=== PATIENT | male | born 1995 | race Two or more races ===

== ENCOUNTER 2019-03-19 00:52 | Emergency (ER) | payer SELFPAY ==
[2019-03-19 01:12] VITALS: BP 144/85
--- NOTE | 2019-03-19 08:47 | EKG REPORT ---
SEVERITY:- ABNORMAL ECG - SINUS RHYTHM INCOMPLETE LEFT BUNDLE BRANCH BLOCK : Confirmed by: Shyla Katz 19-Mar-2019 08:46:46
== END 2019-03-19 02:30 | disposition left against medical advice (07) ==
LOC: ER 00:52
DX: Z53.21 Procedure and treatment not carried out due to patient leaving prior to being seen by health care provider (principal)
CPT/HCPCS: 93005; 93010

== ENCOUNTER 2019-03-19 23:36 | Emergency (ER) | payer SELFPAY ==
[2019-03-20 01:40] LABS: A TYPE INFLUENZA AG NEGATIVE (NEGATIVE); B INFLUENZA AG NEGATIVE (NEGATIVE)
[2019-03-20] MEDS ORDERED: ALBUTEROL SULFATE HFA (90 MCG/PUFF) 8 GM MDI (1 MDI/ER DISP) IH ONE (05:35)
--- NOTE | 2019-03-20 05:57 | ER Document Report ---
ED General - General Chief Complaint: Cough Stated Complaint: COUGH,SORE THROAT Time Seen by Provider: 03/20/19 05:19 Notes: 23-year-old male presents emergency department complaining of a cough for the past month and a half that is now associated with chest pain only when he coughs and some posttussive emesis. It is been worsening for the past several days. Patient also states that he has had an intermittent sore throat that also feels dry starting on Saturday. Denies any fever, denies any shortness of breath, denies any wheezing, denies any difficulty swallowing. Also denies any rhinorrhea. TRAVEL OUTSIDE OF THE [place] IN LAST 30 DAYS: No - Related Data Allergies/Adverse Reactions: No Known Allergies Allergy (Verified 04/08/15 23:07) Past Medical History - General Information source: Patient - Social History Smoking Status: Current Every Day Smoker Frequency of alcohol use: Social Drug Abuse: Cocaine, Marijuana Family History: Reviewed & Not Pertinent Patient has suicidal ideation: No Patient has homicidal ideation: No - Immunizations Hx Diphtheria, Pertussis, Tetanus Vaccination: No Review of Systems - Review of Systems Constitutional: No symptoms reported EENT: See HPI Cardiovascular: See HPI Respiratory: See HPI Gastrointestinal: See HPI -: Yes All other systems reviewed and negative Physical Exam - Vital signs Vitals: Temp Pulse Resp BP Pulse Ox 99.1 F 110 H 18 151/94 H 97 03/19/19 23:41 03/19/19 23:41 03/19/19 23:41 03/19/19 23:41 03/19/19 23:41 Interpretation: Tachycardic - Notes Notes: GENERAL: Alert, interacts well. No acute distress. HEAD: Normocephalic, atraumatic EYES: Pupils equal, round and reactive to light, extraocular movements intact. ENT: Oral mucosa moist, tongue midline. Slight clear rhinorrhea, some postnasal drip, tympanic membranes intact without injection or erythema. NECK: Full range of motion, supple, trachea midline. LUNGS: Diffuse very mild expiratory wheezing, no rales or rhonchi, no resp iratory distress. HEART: Regular rate and rhythm, no murmurs, gallops, rubs. ABDOMEN: Soft, nontender, nondistended, bowel sounds present in all 4 quadrants. EXTREMITIES: Moves all 4 extremities spontaneously, no edema, radial and dorsalis pedis pulses 2/4 bilaterally. No cyanosis. NEUROLOGICAL: Alert and oriented x3, normal speech. PSYCH: Normal mood, normal affect. SKIN: Warm, Dry, normal turgor, no rashes or lesions noted. Course - Re-evaluation Re-evalutation: 03/20/19 06:45 Flu swabs negative. Given the month and have long history of cough that has not been improving I did order a chest x-ray. Chest X-Ray 03/20/19 05:35 IMPRESSION: Moderate bihilar opacity may indicate lymphadenopathy or pulmonary arterial enlargement. Recommend contrast CT of the chest. Contrasted CT scan of the chest is being ordered. 03/20/19 08:26 Chest X-Ray 03/20/19 05:35 IMPRESSION: Moderate bihilar opacity may indicate lymphadenopathy or pulmonary arterial enlargement. Recommend contrast CT of the chest. 03/20/19 08:26 Chest X-Ray 03/20/19 05:35 IMPRESSION: Moderate bihilar opacity may indicate lymphadenopathy or pulmonary arterial enlargement. Recommend contrast CT of the chest. CAT scan shows significant adenopathy throughout the mediastinum and hilum and paratracheal region. There is a broad differential for this including infectious, neoplastic and inflammatory. Discussed with Dr. Baron who states that the patient will need an excisional biopsy. Discussed with Dr. Jackson the surgeon on-call who states that all the surgeons at [facility] can perform this a biopsy. States that they would be happy to see the patient as an outpatient for this biopsy. Recommends referring the patient to their office. Patient is agreeable to this plan as well. For his acute wheezing and cough today patient will be prescribed an albuterol inhaler 2 puffs every 4 hours as needed for wheezing and discharged home. Patient is going to follow-up as an outpatient for his biopsy to figure out exactly what is causing his lymphadenopathy. - Vital Signs Vital signs: Temp Pulse Resp BP Pulse Ox 98.6 F 88 16 146/77 H 96 03/20/19 07:44 03/20/19 07:44 03/20/19 07:44 03/20/19 07:44 03/20/19 07:44 Discharge - Discharge Clinical Impression: Chronic cough, Mediastinal lymphadenopathy, Wheezing Condition: Stable Disposition: HOME, SELF-CARE Additional Instructions: Please use the albuterol inhaler that we gave you today 2 puffs every 4 hours as needed for cough or wheezing. We found many enlarged lymph nodes on the CAT scan of your chest today. These could be a sign of cancer, infection or inflammatory process such as sarcoidosis. There are many different things that this could be, the most important next step in the work-up is to have a biopsy performed. We have referred you to [facility] with Dr. Jackson or 1 of his partners to have this performed. They should be calling you to arrange an appointment as an outpatient. If you do not hear from them within the next week please call them. Forms: Return to Work Referrals: ABHILASH JACKSON MD [ACTIVE STAFF] - Follow up in 1 week
--- NOTE | 2019-03-20 06:42 | RADIOLOGY REPORT (SQ) ---
EXAM DESCRIPTION: XR CHEST 1 VIEW COMPLETED DATE/TME: 03/20/2019 05:35 CLINICAL HISTORY: 23 years Male, cough, SOB COMPARISON: None. NUMBER OF VIEWS/TECHNIQUE: 1/AP FINDINGS: Moderate bihilar opacity. Mild blunting-effusion of the right costophrenic angle. Normal cardiac silhouette size. No pneumothorax. Stable bony thorax. IMPRESSION: Moderate bihilar opacity may indicate lymphadenopathy or pulmonary arterial enlargement. Recommend contrast CT of the chest.
--- NOTE | 2019-03-20 07:55 | RADIOLOGY REPORT (SQ) ---
EXAM DESCRIPTION: CT CHEST WITH IV CONTRAST COMPLETED DATE/TME: 03/20/2019 07:00 CLINICAL HISTORY: 23 years Male, CXR abnormality, cough x 1.5 mo Comparison: None. Technique: IV contrast. Coronal and sagittal reformat. This exam was performed according to our departmental dose-optimization program, which includes automated exposure control, adjustment of the mA and/or kV according to patient size and/or use of iterative reconstruction technique. [facility]: Dose Right [facility]: CareDose [facility]: Dose Right [facility]: Teradose 4D [facility]: Megathread LIMITATIONS: None Findings: Moderate to large confluent/matted lymphadenopathy of the mediastinum, right paratracheal, and bilateral konrad include a posterior mediastinal component extending to the right juxtapleural space measuring 9 x 8 x 3.2 cm, image 54 of series 601. Small bilateral peribronchial markings of the right lower lobe and mild scattered reticulonodular markings of the right middle lobe and bilateral lower lobes. Inferior neck, axillae, airway, heart, vasculature, upper abdomen, and musculoskeleton appear otherwise unremarkable. Impression: Extensive mediastinal, bihilar, and right paratracheal lymphadenopathy. Small scattered reticulonodular lung lesions. Differential etiologies include infectious, inflammatory, and neoplastic processes. Differential diagnosis includes sarcoidosis, lymphoma, and metastatic disease. Cannot exclude infectious etiologies including TB/histoplasmosis.
[2019-03-20 09:17] VITALS: BP 144/80
== END 2019-03-20 08:55 | disposition home or self-care (01) ==
LOC: ER 23:36
DX: J02.9 Acute pharyngitis, unspecified (principal); R06.2 Wheezing; R59.0 Localized enlarged lymph nodes; R05 Cough; F17.200 Nicotine dependence, unspecified, uncomplicated
CPT/HCPCS: 99284; 87804; 71045; 71260; J3490